=== PATIENT | male | born 1995 | race Caucasian/White ===

== ENCOUNTER 2017-02-03 03:00 | Emergency (ER) | payer SELFPAY ==
[2017-02-03 03:22] VITALS: O2SAT 100
[2017-02-03] MEDS ORDERED: Oxycodone/Acetaminophen 5/325 mg Tab PO STA (03:55)
[2017-02-03] MEDS ORDERED: Oxycodone/Acetaminophen 5/325 mg Tab ONE (04:09)
[2017-02-03 04:35] VITALS: BP 118/68; PULSE 80; RESP 16; TEMP 98
--- NOTE | 2017-02-03 04:39 | C.PDOC ---
History Of Present Illness A 21 y/o male c/o left sided neck pain and stiffness since yesterday. Pt notes the pain is worse with movement, but denies trauma, sore throat, URI symptoms, fever, chills, ear pain, or any other complaints. Pt reports taking 1 Advil PO at home with no relief. Time Seen by Provider: 02/03/17 03:49 Chief Complaint (Nursing): ENT Problem History Per: Patient History/Exam Limitations: no limitations Onset/Duration Of Symptoms: Days Current Symptoms Are (Timing): Still Present Severity: Mild Recent travel outside of the [place]: No Additional History Per: Patient Past Medical History Reviewed: Historical Data, Nursing Documentation, Vital Signs Vital Signs: Last Vital Signs Temp 98.0 F 02/03/17 04:35 Pulse 80 02/03/17 04:35 Resp 16 02/03/17 04:35 BP 118/68 02/03/17 04:35 Pulse Ox 100 02/03/17 05:18 Family History: States: Unknown Family Hx - Social History Hx Tobacco Use: No Hx Alcohol Use: Yes Hx Substance Use: No - Immunization History Hx Tetanus Toxoid Vaccination: No Hx Influenza Vaccination: No Hx Pneumococcal Vaccination: No Review Of Systems Constitutional: Negative for: Fever, Chills ENT: Negative for: Ear Pain, Nose Discharge, Nose Congestion, Throat Pain (Sore throat) Respiratory: Negative for: Cough Musculoskeletal: Positive for: Neck Pain (Left sided neck pain and stiffness ) Physical Exam - Physical Exam Appears: Non-toxic, No Acute Distress Skin: Warm, Dry Head: Atraumatic, Normacephalic Eye(s): bilateral: Normal Inspection Oral Mucosa: Moist Throat: Normal, No Exudate Neck: No Normal ROM, Decreased ROM (Limited lateral motion of the neck due to pain), No Midline Cervical Tenderness, Paracervical Tenderness (Left ), Supple Chest: Symmetrical Cardiovascular: Rhythm Regular, No Murmur Respiratory: Normal Breath Sounds, No Accessory Muscle Use, No Wheezing Neurological/Psych: Oriented x3, Normal Speech, Normal Cognition, Normal Motor, Normal Sensation, Other (No focal deficit) Gait: Steady ED Course And Treatment O2 Sat by Pulse Oximetry: 100 (RA) Pulse Ox Interpretation: Normal Progress Note: Impression: 21 y/o male c/o left sided neck pain since yesterday. Plans: Valium, Toradol, OxyCODONE, reassess. Pt is improving with the neck pain and is in no acute distress. Pt was given PO medications and was advised to follow up with his PMD if symptoms continue to persist. Disposition Counseled Patient/Family Regarding: Diagnosis, Need For Followup - Disposition Disposition: HOME/ ROUTINE Disposition Time: 04:36 Condition: STABLE Additional Instructions: Please follow up in clinic Take meds as directed Return to ER if worse Prescriptions: diaZEpam [Valium] 5 mg PO BID #10 tab Ibuprofen [Motrin] 600 mg PO Q6H #30 tab Instructions: Cervical Strain (GEN) - Clinical Impression Clinical Impression: Torticollis - Scribe Statement The provider has reviewed the documentation as recorded by the Scribe Pattie david All medical record entries made by the Juaniibvenkat were at my direction and personally dictated by me. I have reviewed the chart and agree that the record accurately reflects my personal performance of the history, physical exam, medical decision making, and the department course for this patient. I have also personally directed, reviewed, and agree with the discharge instructions and disposition.
== END 2017-02-03 04:41 | disposition home or self-care (01) ==
LOC: C.ER 03:00
DX: M43.6 Torticollis (principal)
CPT/HCPCS: 96372; 99283; J1885